=== PATIENT | male | born 1975 | race Caucasian/White ===

== ENCOUNTER 2023-02-11 09:48 | Emergency (ER) | payer OTHER, SELFPAY ==
[2023-02-11 09:49] VITALS: BP 141/100; PULSE 112; RESP 16; TEMP 37.4; O2SAT 99; BMI 34.4
[2023-02-11 09:51] VITALS: BP 141/100; PULSE 112; RESP 16; TEMP 37.4; O2SAT 99
--- NOTE | 2023-02-11 10:22 | EX.ED.DYSGE1 ---
HPI History of Present Illness Chief Complaint: Abd Pain Informant: patient Narrative Narrative: 47-year-old male presenting to the emergency room with a chief complaint of vomiting. Patient states that last night he was up vomiting throughout the night. He states he feels feverish and sweaty. He notes intermittent diarrhea and constipation which has been chronic. He notes intermittent right-sided abdominal pain/flank pain. The patient notes he ate hibachi last night and had mostly protein. Nothing seemed undercooked. He denies any cough sore throat runny nose shortness of breath. No rashes. He has not had any antipyretics to mask a fever. He denies urinary symptoms. No prior abdominal surgeries PFSH PFSH Medical History (Updated 02/11/23 @ 12:[address] Dayron Gonzalez DO) Alcoholism Home Medications amoxicillin 875 mg-potassium clavulanate 125 mg tablet 875 mg (0.875 x 875-125 mg) PO Q12H #20 TABLETS 02/11/23 [Rx Last Taken Unknown] ondansetron 4 mg disintegrating tablet 4 mg PO Q6H PRN PRN Nausea #15 tabs 02/11/23 [Rx Last Taken Unknown] Allergy/AdvReac Type Severity Reaction Status Date / Time No Known Allergies Allergy Verified 02/11/23 09:51 Surgical History (Updated 02/11/23 @ 10:[address] Dayron Gonzalez DO) S/P tendon repair Social History (Updated 02/11/23 @ 10:[address] Dayron Gonzalez DO) Smoking Status: Never smoker alcohol intake: current alcohol intake frequency: 3 or more drinks per day Alcohol type: beer ROS ROS ED Constitutional Constitutional ED: Reports chills, fever(s), subjective and sweats; Denies weight loss Eyes Eyes: Denies change in vision or diplopia ENT ENT ED: Denies ear pain, rhinorrhea or sore throat Cardiovascular Cardiovascular: Denies chest pain, orthopnea, palpitations or racing heartbeat Respiratory/Chest Respiratory/Chest: Denies cough, dyspnea or orthopnea Gastrointestinal Gastrointestinal: Reports abdominal pain, constipation, diarrhea, nausea and vomiting; Denies melena Genitourinary Genitourinary ED: Denies dysuria, hematuria or urinary frequency Musculoskeletal Musculoskeletal: Reports back pain; Denies arthralgias, myalgias or neck pain Integumentary Denies abscess or rash Neurologic Neurologic: Denies headache(s) or weakness Psychiatric Psychiatric: Denies anxiety, depression, suicidal ideation or suicidal thoughts Endocrine Endocrinology: Denies polydipsia, polyphagia or polyuria Allergic/Immunologic Allergic/Immunologic ED: Denies mouth swelling, tongue swelling or urticaria EXAM Physical Exam Const Vital Signs: 02/11/23 09:49 02/11/23 09:51 02/11/23 11:48 Temperature 99.4 F H 99.4 F H Temperature Source Temporal Temporal Pulse Rate 112 H 112 H Respiratory Rate 16 16 18 Blood Pressure 141/100 H 141/100 H Blood Pressure Mean 113 113 Pulse Ox 99 99 Oxygen Delivery Method Room Air Room Air Positive well nourished and well developed General Appearance ED: well developed HEENT Reports normocephalic, head/scalp atraumatic and moist mucous membranes Eyes PERRL and EOMs intact bilaterally Neck no lymphadenopathy, supple and no JVD Resp normal respiratory effort and clear to auscultation bilaterally Cardio regular rate, regular rhythm and no murmurs GI Inspection: Negative for abdominal distention Auscultation: normoactive bowel sounds Palpation: soft and tender epigastric, LLQ, RLQ and suprapubic; Negative for guarding or rebound tenderness present Back/Spine no CVA tenderness and normal ROM Extremity normal to inspection General Extremety ED: Negative for edema General Extremity: Negative for edema Neuro oriented x3 and CN's II-XII intact bilaterally Sensorium / Orientation: alert Motor Exam: strength 5/5 throughout Psych mental status grossly normal Mood & Affect: Negative for depressed or tearful Skin no rashes or lesions noted and no wounds Skin Narrative: Diaphoretic MDM MDM MDM Narrative Medical decision making narrative: White count is normal at 9.4 hemoglobin 15.1 with platelet count of 364. CMP showed a glucose of 126. Liver enzymes and lipase were normal. Urinalysis negative. Alcohol level is negative. CT of the abdomen pelvis was obtained which demonstrates findings consistent with acute diverticulitis without abscess formation or perforation. Please see radiologist read for further details. Patient received a liter of IV fluids Tylenol and Zofran. I am going to write him for Augmentin as well as Zofran for nausea. He is to continue Tylenol for fever control. Return if worsening or concerns patient understands the plan and family also notes understanding Lab Data Attestation: I reviewed the patient's lab results. Labs: Laboratory Results - last 24 hr 02/11/23 02/11/23 10:30 12:21 WBC 9.4 RBC 4.96 Hgb 15.1 Hct 45.3 MCV 91.3 MCH 30.4 MCHC 33.3 RDW Std Deviation 41.5 RDW Coeff of David 12.6 Plt Count 364 MPV 8.7 Immature Gran % (Auto) 0.300 Neut % (Auto) 86.4 H Lymph % (Auto) 7.3 L [place] % (Auto) 5.4 Eos % (Auto) 0.1 Baso % (Auto) 0.5 Absolute Neuts (auto) 8.1 H Absolute Lymphs (auto) 0.68 L Nucleated RBC % 0 Sodium 139 Potassium 3.7 Chloride 105 Carbon Dioxide 23.0 Anion Gap 11 BUN 7 Creatinine 0.86 Estim Creat Clear Calc 126.11 Est GFR (MDRD) Af Amer 124 Est GFR (MDRD) Non-Af 103 BUN/Creatinine Ratio 8.2 L Glucose 126 H Calcium 9.2 Magnesium 1.9 Total Bilirubin 0.60 Direct Bilirubin 0.17 AST 13 L ALT 32 Alkaline Phosphatase 97 Total Protein 8.0 Albumin 3.6 Globulin 4.4 H Lipase 20 Urine Color Yellow Urine Clarity Clear Urine pH 7.0 Ur Specific [place] 1.005 Urine Protein Negative Urine Glucose (UA) Normal Urine Ketones Negative Urine Occult Blood Negative Urine Nitrite Negative Urine Bilirubin Negative Urine Urobilinogen Normal Ur Leukocyte Esterase Negative Urine RBC 0 SEEN Urine WBC 0 SEEN Ur Squamous Epith Cells 0 SEEN Urine Bacteria 0 SEEN Urine Mucus 0 SEEN Ethyl Alcohol < 3.0 Radiography Diagnostic Testing: Clinical Impression(s) from Imaging Studies Abdomen/Pelvis CT 02/11/23 11:19 IMPRESSION: 1. Acute diverticulitis of the sigmoid colon. 2. Mild diffuse hepatic steatosis. Electronically Signed: Satya Rader MD at 12:06 EDT , Discharge Plan Triage Chief Complaint: Abd Pain ED Provider: Dayron Gonzalez Dx/Rx/DC Orders Clinical Impression: Abdominal pain, acute, Diverticulitis Instructions: ED Diverticulitis Prescriptions: New ondansetron [ondansetron] 4 mg tablet,disintegrating 4 mg PO Q6H PRN PRN (Reason: Nausea) Qty: 15 0RF amoxicillin-pot clavulanate [amoxicillin-pot clavulanate] 875-125 mg tablet 875 mg PO Q12H Qty: 20 0RF Primary Care Provider: Care Physician,No Primary Referrals: NOT,DEFINED [Non-Staff] - Activity Restrictions/Additional Instructions: Please follow-up with your primary care doctor to discuss possible further gallbladder work-up (ultrasound/HIDA scan). Please inform them that you have been diagnosed with diverticulitis. You will most likely need a follow-up colonoscopy Disposition Disposition: Home, Self Care
[2023-02-11] MEDS: Acetaminophen 500 MG Tablet 1000 MG PO (10:32)
[2023-02-11] MEDS: 0.9% Normal Saline (1000mL) 1,000 ML 1000 ML IV (10:32)
[2023-02-11] MEDS: Ondansetron 4 MG/2 ML Vial IV (10:32)
[2023-02-11 10:36] LABS: Absolute Lymphocyte Count 0.68 X10^3/uL (0.83-4.51); Absolute Neutrophil Count 8.1 X10^3/uL (2.0-7.7); Basophil# 0.05 X10^3/uL; Basophil% 0.5 % (0-1); Eosinophil# 0.01 X10^3/uL; Eosinophils% 0.1 % (0-5); Hematocrit 45.3 % (40-54); Hemoglobin 15.1 g/dL (13.0-16.5); Lymphocyte # 0.68 X10^3/ul (0.83-4.51); Lymphocyte % 7.3 % (19-41); Mean Corp Hgb Conc 33.3 g/dL (32-36); Mean Corpuscular Hgb 30.4 pg (27.0-32.0); Mean Corpuscular Volume 91.3 fL (80-94); Mean Platelet Vol. 8.7 fl (6.2-12.0); Monocyte# 0.51 X10^3/uL; Monocyte% 5.4 % (0-10); NRBC Flagged by Analyzer 0 % (0-5); Neutrophil # 8.09 X10^3/uL (2.7-7.7); Neutrophil % 86.4 % (47-70); Platelet Count 364 K/mm3 (150-450); RBC Distribution Width CV 12.6 % (11.6-14.6); RBC Distribution Width SD 41.5 fl (35.1-43.9); Red Blood Count 4.96 M/mm3 (4.6-6.2); White Blood Count 9.4 K/mm3 (4.4-11.0)
[2023-02-11 10:56] LABS: AST(SGOT) 13 U/L (15-37); Alanine Aminotransfer ALT/SGPT 32 U/L (16-61); Albumin, Serum 3.6 g/dL (3.2-5.0); Alkaline Phosphatase 97 U/L (45-117); Anion Gap 11 (5-15); BUN 7 mg/dL (7-18); BUN/Creat Ratio 8.2 RATIO (10-20); Bilirubin, Direct 0.17 mg/dL (0.00-0.30); Calcium,Total 9.2 mg/dL (8.5-10.1); Chloride 105 mmol/L (98-107); Creatinine, Serum 0.86 mg/dL (0.70-1.30); EST Glomerular Filtration Rate 103 mL/min (>60); Est Glom Filt Rate - Afr Amer 124 mL/min (>60); Estimated Creatinine Clearance 126.11 ml/min; Globulin 4.4 g/dL (2.2-4.2); Glucose 126 mg/dL (74-106); Lipase 20 U/L (13-75); Magnesium 1.9 mg/dL (1.6-2.6); Potassium 3.7 mmol/L (3.5-5.1); Sodium Level 139 mmol/L (136-145)
[2023-02-11 11:01] LABS: Alcohol, Blood (Medical)-Serum < 3.0 mg/dL
--- NOTE | 2023-02-11 11:19 | CT_ITS ---
EXAM: CT ABDOMEN AND PELVIS WITH INTRAVENOUS CONTRAST CLINICAL INDICATION: Abdominal pain. TECHNIQUE: Helically acquired images were obtained of the abdomen and pelvis with intravenous contrast. This CT exam was performed using one or more of the following dose reduction techniques: automated exposure control, adjustment of the mA and/or kV according to patient size, and/or use of iterative reconstruction technique. CONTRAST: IV 100mL [id number] RADIATION DOSE: CTDIvol = 15.95 mGy, DLP = 1251.24 mGy-cm COMPARISON: No relevant prior studies available. FINDINGS: LOWER THORAX: Unremarkable. Lung bases are clear. No cardiomegaly. No significant pericardial effusion. ABDOMEN: LIVER: Mild diffuse fatty infiltration of liver. GALLBLADDER AND BILE DUCTS: Unremarkable. No calcified gallstones. No gallbladder distention or wall edema. No intra- or extrahepatic biliary ductal dilation. PANCREAS: Unremarkable. No focal cystic or solid mass. SPLEEN: Unremarkable. Normal size without focal cystic or solid mass. ADRENALS: Unremarkable. No nodules. KIDNEYS AND URETERS: Unremarkable. Normal renal size and position. No hydronephrosis. STOMACH AND BOWEL: Abnormal intramural thickening of the sigmoid colon with multiple diverticula and stranding of the pericolic fat consistent with acute diverticulitis. No stomach or bowel distention. PELVIS: APPENDIX: Normal. BLADDER: Unremarkable. REPRODUCTIVE: Unremarkable as visualized. No mass. ABDOMEN and PELVIS: INTRAPERITONEAL SPACE: Unremarkable. No ascites or other fluid collection. No free air. BONES/JOINTS: Unremarkable. No suspicious lytic or blastic abnormality. SOFT TISSUES: Small midline umbilical hernia containing only normal fat. VASCULATURE: Unremarkable. Abdominal aorta is non-dilated. LYMPH NODES: Unremarkable. No enlarged lymph nodes. CT/Abdomen/Pelvis W IV Cont ONLY IMPRESSION: 1. Acute diverticulitis of the sigmoid colon. 2. Mild diffuse hepatic steatosis. Electronically Signed: Satya Rader MD at 12:06 EDT ,
[2023-02-11 11:48] VITALS: RESP 18
[2023-02-11 12:27] LABS: Bacteria 0 SEEN /hpf (None Seen); Mucous, Urine 0 SEEN /hpf (<or=2+); Red Blood Cells-Urine 0 SEEN /hpf (0-5); Squamous Epithelial Cells - UA 0 SEEN /hpf (0-5); White Blood Cells 0 SEEN /hpf (0-5)
[2023-02-11 12:28] LABS: Color, Urine Yellow (Yellow); Glucose, Dipstick Normal (Normal); Ketone-Dipstick Negative (Negative); Leukocyte Esterase-Dipstick Negative /ul (Negative); Nitrite-Dipstick Negative (Negative); Occult Blood-Urine Negative /ul (Negative); Protein-Dipstick Negative (Negative); Specific Gravity, Urine 1.005 (1.002-1.030); Urine Bilirubin Dipstick Negative (Negative); Urine Clarity Clear (Clear); Urine Urobilinogen Normal (Normal)
== END 2023-02-11 13:04 | disposition home or self-care (01) ==
PROVIDERS: Emergency Provider Emergency Medicine; Visit Provider Emergency Medicine
DX: K57.32 Diverticulitis of large intestine without perforation or abscess without bleeding (principal); R10.9 Unspecified abdominal pain
CPT/HCPCS: 74177; 80048; 80076; 81001; 82077; 83690; 83735; 85025; 87428; 96374; 99283; J7030; Q9967; A4216; J2405